=== PATIENT | male | born 1995 | race Caucasian/White ===

== ENCOUNTER → 2023-04-07 | Emergency (ER) | payer BC ==
[~2023-04-07] VITALS: Ht 177.8 cm; Wt 83.9 kg
[~2023-04-07] MED LIST: DOXYCYCLINE HY100 M2; DOXYCYCLINE HY100 M2 PO
== END | disposition home or self-care (01) ==
LOC: ER 09:45
DX: L03.116 Cellulitis of left lower limb (principal)